=== PATIENT | female | born 1995 | race Caucasian/White ===

== ENCOUNTER 2018-08-28 10:45 | Inpatient (IN) | payer BC ==
[2018-08-28 11:37] LABS: #Basophils 0.1 thou/uL (0.0-0.2); #Eosinphils 0.2 thou/uL (0.0-0.7); #Lymphocytes 2.1 thou/uL (1.20-3.40); #Monocytes 0.9 thou/uL (0.11-0.59); #Neutrophils 12.6 thou/uL (1.40-6.50); %Basophils 0.8 % (0.0-1.0); %Eosinophils 1.3 % (0.0-10.0); %Lymphocytes 13.4 % (21.0-51.0); %Monocytes 5.8 % (0.0-10.0); %Neutrophils 78.7 % (42.0-75.0); Hemoglobin 13.3 g/dL (12.0-16.0); Mean Corpuscular HGB CONC 32.5 g/dL (32.0-36.0); Mean Corpuscular Hemoglobin 29.9 pg (27.0-31.0); Mean Corpuscular Volume 92.2 fL (78.0-98.0); Mean Platelet Volume 6.4 fL (7.4-10.4); Platelet Count 347 thou/uL (130-400); RBC Distribution Width 11.2 % (11.5-14.5); Red Blood Cell (RBC) Count 4.44 mill/uL (4.20-5.40)
[2018-08-28] MEDS ORDERED: Lidocaine 1% w/Epinephrine 1:100K 20 ML VIAL ONE (11:51)
[2018-08-28] MEDS ORDERED: Morphine 4 MG/ML VIAL ONE ×2 (12:04→12:55)
[2018-08-28 12:10] LABS: ALT (SGPT) 9 U/L (8-55); AST (SGOT) 10 U/L (5-34); Albumin 3.8 g/dL (3.5-5.0); Alkaline Phosphatase 85 U/L (40-150); Anion Gap 8 mmol/L (10-20); BUN (Urea Nitrogen) 6 mg/dL (7.0-18.7); Bilirubin, Total 0.3 mg/dL (0.2-1.2); Calc. Creatinine Clearance 0 mL/min (70-130); Calcium 9.8 mg/dL (7.8-10.44); Carbon Dioxide 31 mmol/L (22-29); Chloride 100 mmol/L (98-107); Estimated GFR-MDRD Greater than 90; Globulin 4.1 g/dL (2.4-3.5); Glucose 93 mg/dL (70-105); Potassium 4.4 mmol/L (3.5-5.1); Protein, Total 7.9 g/dL (6.0-8.3); Sodium 135 mmol/L (136-145)
[2018-08-28] MEDS ORDERED: Succinylcholine Chloride 20 MG/ML 10 ml SYRINGE FS ONE (14:37)
[2018-08-28] MEDS ORDERED: Acetaminophen 325 MG TAB PO PRN (14:54)
[2018-08-28] MEDS ORDERED: HYDROcodone/Acetaminophen 5/325 mg Tablet PO PRN (14:56)
[2018-08-28] MEDS ORDERED: HYDROcodone/Acetaminophen 5/325 mg Tablet ONE (15:14)
--- NOTE | 2018-08-28 16:19 | HP ---
CHIEF COMPLAINT: Axillary abscess. HISTORY OF PRESENT ILLNESS: This patient is a 23-year-old female with a history of scleroderma morphea, who is on no immunosuppressant medications. The patient developed a couple of small pimple like lesions in the right anterior axilla. She used a needle to open them, but immediately started getting some inflammation anterior in the upper outer pectoralis breast area extending from the axilla. She saw her PCP and was given oral Keflex and clindamycin with a Rocephin shot and failed to have significant improvement, so she came back, had another Rocephin shot and was continued on Keflex, where she continued to progress, returned there again today and was referred to the emergency department. She has had fever intermittently for the last 3 days. Her pain ranges from 4/10 to 10/10 and is somewhat positional. The pain tends to radiate toward the scapula and lying still seems to help. She has been using some Tylenol No. 3 to relieve the pain. REVIEW OF SYSTEMS: Fever as noted above. All of the systems reviewed, all pertinent positives and negatives noted in the history of present illness. PAST MEDICAL HISTORY: Notable for the scleroderma morphea and severe depression. PAST SURGICAL HISTORY: None. FAMILY HISTORY: Mother had breast cancer at 40. Grandmother had breast cancer. Father of liver cirrhosis and paternal grandmother had lupus. 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 She smokes about half a pack per day for the last 7 years. Minimal alcohol consumption. No drugs. She is full code and her mother would be her surrogate decision maker. ALLERGIES: NONE. CURRENT MEDICATIONS: 1. Adderall 60 mg daily p.r.n. 2. control. 3. Pristiq 50 mg daily. 4. Ibuprofen daily. 5. P.r.n. laxatives. PHYSICAL EXAMINATION: VITAL SIGNS: BP 116/70, pulse 76, respirations 20, temperature is 98.3, O2 sats 98% on room air. GENERAL APPEARANCE: Age-appropriate female, in no distress. She is awake, alert, oriented, pleasant, and cooperative. HEENT: PERRL. No OP lesions. NECK: Supple and symmetric with no lymphadenopathy, JVD, or carotid bruits. HEART: Regular rate and rhythm without murmurs, gallops, or rubs. LUNGS: Clear to auscultation bilaterally with good chest wall expansion and air exchange. ABDOMEN: Soft, nontender, and nondistended. Positive bowel sounds. No masses. No organomegaly. EXTREMITIES: No cyanosis, clubbing, or edema. SKIN: Warm and dry. She has some vascular dermatitis type changes of linear type fashion of the right ankle. Also has some on her back area. She has significant amount of erythema, most intensely about 4 x 5 cm in the right anterior axilla and upper outer pectoralis area. This is exquisitely tender to palpation. There is no drainage noted or communication with the skin. NEURO: The patient appears to be fully intact with no focal deficits. PSYCH: The patient has normal affect and behavior. LABORATORY DATA: White count 16.0, hemoglobin 13.3, platelets 347. No bands. Sodium 135, potassium 4.4, chloride 100, CO2 31, BUN 6, creatinine 0.72. LFTs normal. EMERGENCY DEPARTMENT COURSE: The patient was administered morphine and vancomycin and was subsequently aspirated from this abscess area and approximately 30 mL of purulent material was aspirated. This was sent for culture. The patient reports that she feels some better after the aspiration, but continues to have significant pain. IMPRESSION AND PLAN: 1. Right axillary abscess status post aspiration of 30 mL of purulent fluid. The patient has received vancomycin. We will continue with observation care, IV vancomycin, p.o. pain medications. We will follow up on the culture and reassess the outlined area of the wound in the morning. Pending her progression, may need to have a surgical evaluation if there appears to be reaccumulation of abscess forming. Otherwise, if the patient is showing some significant improvement, we will hopefully get some help from cultures to guide therapy going forward. The patient reports a history of staph infection, but indicates it was not MRSA. 2. History of depression. We will continue with the Pristiq, which we will convert to venlafaxine per our formulary. 3. Scleroderma morphea, chronic and stable. Job ID: [id number]
[2018-08-28 17:09] VITALS: BMI 27.4
[2018-08-28] MEDS: HYDROcodone/Acetaminophen 5/325 mg Tablet PO PRN ×2 (17:26→21:43)
[2018-08-28] MEDS: Vancomycin HCl 1.5 GM in Sodium Chloride 0.9% 250 ML 300 ML IVPB SCH (20:24)
[2018-08-28] MEDS ORDERED: Vancomycin HCl 1 GM in Premix Bag 1 BAG IVPB SCH (21:00)
[2018-08-29 04:21] LABS: #Basophils 0.1 thou/uL (0.0-0.2); #Eosinphils 0.3 thou/uL (0.0-0.7); #Lymphocytes 2.8 thou/uL (1.20-3.40); #Monocytes 0.7 thou/uL (0.11-0.59); #Neutrophils 6.4 thou/uL (1.40-6.50); %Basophils 0.8 % (0.0-1.0); %Eosinophils 2.6 % (0.0-10.0); %Lymphocytes 27.3 % (21.0-51.0); %Monocytes 7.1 % (0.0-10.0); %Neutrophils 62.3 % (42.0-75.0); Hemoglobin 12.2 g/dL (12.0-16.0); Mean Corpuscular Hemoglobin 30.7 pg (27.0-31.0); Mean Corpuscular Volume 90.3 fL (78.0-98.0); Mean Platelet Volume 6.4 fL (7.4-10.4); Platelet Count 322 thou/uL (130-400); RBC Distribution Width 11.1 % (11.5-14.5); Red Blood Cell (RBC) Count 3.98 mill/uL (4.20-5.40); White Blood Cell (WBC) Count 10.2 thou/uL (4.8-10.8)
[2018-08-29] MEDS: Morphine 4 MG/ML VIAL SLOW IVP PRN ×4 (04:21→20:42)
[2018-08-29] MEDS: Vancomycin HCl 1.5 GM in Sodium Chloride 0.9% 250 ML 300 ML IVPB SCH (04:21)
[2018-08-29] MEDS: Venlafaxine HCl XR 75 MG CAP PO SCH (07:52)
[2018-08-29] MEDS: HYDROcodone/Acetaminophen 5/325 mg Tablet PO PRN ×4 (07:52→23:39)
--- NOTE | 2018-08-29 10:11 | PRG ---
DATE OF SERVICE: 08/29/2018 SUBJECTIVE: The patient reports that she does feel better than she did yesterday. The pain still comes and goes. She does feel like the pocket has reaccumulated fluid after being aspirated yesterday. OBJECTIVE: VITAL SIGNS: She is afebrile. T-max 97.9, pulse 73, respirations 18, O2 saturation 99% on room air, BP 118/60. GENERAL APPEARANCE: Age-appropriate female, in no distress. HEART: Regular rate and rhythm. No murmurs. LUNGS: Clear to auscultation bilaterally. ABDOMEN: Soft, nontender, and nondistended. SKIN: Reveals persistent pocket of fluid in the right upper outer pectoralis/axillary area which is exquisitely tender. There is still overlying erythema of the skin with a small halo beyond the more intense area. LABORATORY DATA: White count 10.2, hemoglobin 12.2. Culture so far is growing Staph aureus, the susceptibilities are pending. IMPRESSION AND PLAN: 1. Right axillary area abscess status post aspiration of 30 mL of purulent fluid in the emergency department. She remains on vancomycin. However, with the reaccumulation of the pocket, we will ask Surgery to see her as this may need to be opened. We will follow cultures and susceptibilities. 2. History of depression. Continue with the venlafaxine. 3. History of scleroderma morphea, stable. Job ID: [id number]
[2018-08-29 11:17] LABS: Vancomycin, Trough 21.2 ug/mL
[2018-08-29] MEDS: Vancomycin HCl 1.25 GM in Sodium Chloride 0.9% 250 ML 250 ML IVPB SCH ×2 (12:16→19:31)
[2018-08-29] MEDS: Nicotine 14 MG PATCH TOP SCH (17:41)
[2018-08-30] MEDS: Morphine 4 MG/ML VIAL SLOW IVP PRN ×2 (01:15→07:20)
[2018-08-30] MEDS: Vancomycin HCl 1.25 GM in Sodium Chloride 0.9% 250 ML 250 ML IVPB SCH ×3 (03:27→20:00)
[2018-08-30] MEDS: HYDROcodone/Acetaminophen 5/325 mg Tablet PO PRN ×4 (03:34→22:20)
[2018-08-30] MEDS ORDERED: Bisacodyl 10 MG SUPP PR SCH (06:15)
[2018-08-30] MEDS ORDERED: Midazolam HCl 2 mg/2 ml Vial ONE (07:07)
[2018-08-30] MEDS ORDERED: Fentanyl 100 MCG/2 ML VIAL ONE ×2 (07:07→09:05)
[2018-08-30] MEDS ORDERED: Bupivacaine/Epinephrine 0.25% 30 ML VIAL ONE (07:44)
[2018-08-30] MEDS ORDERED: Promethazine HCl 25 MG/ML VIAL IM PRN (08:52)
[2018-08-30] MEDS ORDERED: Promethazine HCl 25 MG/ML VIAL SLOW IVP PRN (08:52)
[2018-08-30] MEDS ORDERED: Ondansetron HCl/PF 4 MG/2 ML Vial IVP PRN (08:52)
[2018-08-30] MEDS: Venlafaxine HCl XR 75 MG CAP PO SCH (10:17)
[2018-08-30 11:49] LABS: Vancomycin, Trough 17.9 ug/mL
--- NOTE | 2018-08-30 14:20 | PDOC.PN ---
- Subjective Encounter Start Date: 08/30/18 Encounter Start Time: 09:00 Patient seen and examined for MRSA abscess. Pain +. No fever. No new complaints. No overnight events - Objective Resuscitation Status - Order Detail: 08/28/18 14:56 Resuscitation Status Routine Resuscitation Status: FULL: Full Resuscitation Discussed with: Patient MUKUND Reviewed: Yes Vital Signs & Weight: Vital Signs (12 hours) Temp Pulse Resp BP Pulse Ox 08/30/18 10:00 97.7 F 71 18 137/69 98 08/30/18 09:30 97.7 F 75 20 100 08/30/18 07:30 100 08/30/18 07:21 97.6 F 81 16 129/77 100 08/30/18 03:57 97.7 F 59 L 12 112/69 98 Weight Weight 169 lb 15.622 oz I&O: 08/29/18 08/30/18 08/31/18 06:59 06:59 06:59 Intake Total 3020 2787.0 Balance 3020 2787.0 Result Diagrams: 08/29/18 04:10 08/28/18 11:31 Phys Exam - Physical Examination Constitutional: NAD Respiratory: no wheezing, no rhonchi Cardiovascular: RRR, no rub Gastrointestinal: soft, non-tender, positive bowel sounds Musculoskeletal: no edema Rt axillary swelling Neurological: moves all 4 limbs Dx/Plan - Plan DVT proph w/SCDs 1. Sepsis due to MRSA Axillary abscess 2. Depression - mild - stable 3. Scleroderma Morphea 4. Hyponatremia PLAN: Cont IV Vancomycin Pain control Monitor Vancomycin level I&D today Review of Systems - Review of Systems Respiratory: negative: Cough, Dry, Shortness of Breath, Hemoptysis, SOB with Excertion, Pleuritic Pain, Sputum, Wheezing Cardiovascular: negative: chest pain, palpitations, orthopnea, paroxysmal nocturnal dyspnea, edema, light headedness, other - Medications/Allergies Allergies/Adverse Reactions: Allergies Allergy/AdvReac Type Severity Reaction Status Date / Time No Known Allergies Allergy Unverified 08/28/18 15:13 Medications: Current Medications Acetaminophen (Tylenol) 650 mg PO Q4H PRN PRN Reason: Headache/Fever/Mild Pain (1-3) Hydrocodone Bitart/Acetaminophen (Webb 5/325) 1 tab PO Q4H PRN PRN Reason: Mild-Moderate Pain (1-5) Hydrocodone Bitart/Acetaminophen (Webb 5/325) 2 tab PO Q4H PRN PRN Reason: Moderate to Severe Pain (6-10) Last Admin: 08/30/18 10:17 Dose: 2 tab Vancomycin HCl 1.25 gm/ Sodium (Chloride) 250 mls @ 166.667 mls/hr IVPB 0400, 1200,2000 [facility] Last Admin: 08/30/18 13:20 Dose: 250 mls Miscellaneous Medication (Pharmacy To Dose) 1 each IVPB PRN PRN PRN Reason: . Morphine Sulfate (Morphine) 2 mg SLOW IVP Q4H PRN PRN Reason: Severe Pain (7-10) Last Admin: 08/30/18 07:20 Dose: 2 mg Nicotine (Nicoderm Patch) 14 mg TOP Q24HR [facility] Last Admin: 08/29/18 17:41 Dose: Not Given Sodium Chloride (Flush - Normal Saline) 10 ml IVF Q12HR [facility] Sodium Chloride (Flush - Normal Saline) 10 ml IVF PRN PRN PRN Reason: Saline Flush Last Admin: 08/30/18 13:20 Dose: 10 ml Venlafaxine HCl (Effexor Xr) 75 mg PO DAILY [facility] Last Admin: 08/30/18 10:17 Dose: 75 mg
[2018-08-30] MEDS ORDERED: PROPOFOL 200 MG/20 ML VIAL ONE (14:48)
[2018-08-30] MEDS ORDERED: Lidocaine 1% PF 5 ML VIAL ONE (14:48)
[2018-08-30] MEDS ORDERED: Ondansetron PF 4 MG/2 ML Vial ONE (14:48)
[2018-08-30] MEDS ORDERED: Dexamethasone 20 MG/5 ML VIAL ONE (14:48)
--- NOTE | 2018-08-30 15:33 | OP ---
DATE OF PROCEDURE: 08/30/2018 PROCEDURE PERFORMED: Incision and drainage of right axillary abscess. DIAGNOSIS: Right axillary abscess. POSTOPERATIVE DIAGNOSIS: Right axillary abscess. ANESTHESIA: General. ESTIMATED BLOOD LOSS: Minimal. COMPLICATIONS: None. SPECIMEN: Cultures taken for culture and sensitivity. DESCRIPTION OF PROCEDURE: The patient was taken to the operating room and placed in supine position after the right axilla was prepped and draped in a sterile fashion. Local anesthetic was infiltrated over the abscess. Ellipsed skin takeout over the abscess. Cultures were taken and the wound was irrigated. All loculations broke up local up and packed with iodoform gauze. Sterile dressings were placed. The patient was sent to Recovery in stable condition. All instrument counts, needle counts, and lap counts were correct. Job ID: [id number]
[2018-08-30] MEDS: Nicotine 14 MG PATCH TOP SCH (16:26)
[2018-08-30] MEDS ORDERED: Polyethylene Glycol 3350 17 GM Packet PO PRN (16:58)
[2018-08-30] MEDS ORDERED: Mag-Al 1200 mg/1200 mg/30 ML UDCUP PO PRN (16:58)
[2018-08-30] MEDS: Senokot S 8.6-50 MG TAB PO SCH (20:00)
[2018-08-31] MEDS: HYDROcodone/Acetaminophen 5/325 mg Tablet PO PRN ×2 (04:37→08:59)
[2018-08-31] MEDS: Vancomycin HCl 1.25 GM in Sodium Chloride 0.9% 250 ML 250 ML IVPB SCH ×2 (04:37→11:58)
[2018-08-31 07:09] VITALS: BP 141/106; TEMP 97.8
[2018-08-31] MEDS: Morphine 4 MG/ML VIAL SLOW IVP PRN ×2 (07:15→11:57)
--- NOTE | 2018-08-31 08:51 | CON ---
DATE OF CONSULTATION: 08/29/2018 HISTORY OF PRESENT ILLNESS: Ms. Rubio is a 23-year-old female, who presents with history of swelling and redness in the right axilla for a few days, associated with fever and severe pain, admitted to the hospital. She had aspiration in the ER, which revealed MRSA. She is on vancomycin. The swelling has reaccumulated and she has pain. I have been consulted for definitive incision and drainage. PAST MEDICAL HISTORY: Includes scleroderma, morphea, and depression. PAST SURGICAL HISTORY: None. MEDICATIONS: Medicines taken daily; 1. Adderall. 2. control. 3. Pristiq. 4. Ibuprofen. ALLERGIES: NO KNOWN DRUG ALLERGIES. SOCIAL HISTORY: Half pack-a-day smoker. Minimal alcohol. No drugs. REVIEW OF SYSTEMS: Ten system review of systems otherwise negative unless described above. PHYSICAL EXAMINATION: VITAL SIGNS: Blood pressure 131/73, pulse 87, and respirations 16. She is afebrile. HEENT: Sclerae anicteric. Oropharynx clear. NECK: No lymphadenopathy. CHEST: Clear. HEART: Regular rate and rhythm. ABDOMEN: Soft and nontender. Examination of the right axilla revealed a swollen fluctuant mass in the in the superior anterior right axilla. SKIN: No bulla or skin crepitus. BREASTS: No obvious breast mass. ASSESSMENT: Right axillary abscess. PLAN: Incision and drainage in the OR in the operating room tomorrow. Risks, benefits, and alternatives were discussed she gives consent we will do this tomorrow. Job ID: [id number]
[2018-08-31] MEDS: Venlafaxine HCl XR 75 MG CAP PO SCH (08:53)
[2018-08-31] MEDS: Senokot S 8.6-50 MG TAB PO SCH (08:53)
--- NOTE | 2018-08-31 18:33 | DIS ---
DATE OF ADMISSION: 08/30/2018 DATE OF DISCHARGE: 08/31/2018 DISCHARGE DISPOSITION: Home. FOLLOWUP: 1. Follow up with Dr. Cassidy in 1 to 2 days as scheduled. 2. Follow up with Dr. Vu in 1 week. ALLERGIES: NO KNOWN DRUG ALLERGIES. THE PATIENT WAS SEEN ON THE DAY OF DISCHARGE. DENIES ANY NEW COMPLAINTS. NO FEVER OR CHILLS REPORTED. SIGNIFICANT LABORATORY DATA: WBC on admission 16 and at discharge 10.2. Sodium 135, potassium 4.4 with BUN 6, and creatinine 0.72. LFTs were normal. Lactic acid 0.8. Blood cultures, negative. Culture from the axilla showed methicillin-resistant staphylococcus aureus sensitive to Bactrim. Axillary abscess culture done after drainage is pending at this time. Primary care physician advised to follow. INPATIENT [employer]IN [employer] SEWER: General Surgery, Dr. Cassidy. INPATIENT PROCEDURES: On 30 August 2018, the patient underwent incision and drainage of the right axillary abscess. BRIEF HOSPITAL COURSE: The patient is a 23-year-old female, who presented to the emergency room with axillary abscess. She failed outpatient antibiotic treatment. Please refer to the history and physical for further details. The patient was admitted to the hospital with a diagnosis of right axillary abscess. She was monitored on the medical floor. She underwent incision and drainage in OR yesterday. She also had approximately 30 mL of purulent material aspirated in the emergency room. She was placed on vancomycin. The culture showed MRSA sensitive to Bactrim. WBC counts improved with antibiotics. She has been cleared by General Surgery for discharge. FINAL DIAGNOSES: 1. Right axillary abscess secondary to methicillin-resistant Staphylococcus aureus. 2. Sepsis secondary to #1. 3. Depression, mild, stable. 4. Scleroderma morphea. 5. Hyponatremia. Repeat labs as outpatient is recommended. Primary care physician advised to follow. PLAN: Plan of care was discussed with the patient and the family in detail. They stated understanding. Job ID: [id number]
== END 2018-08-31 14:48 | disposition home or self-care (01) | DRG 854 ==
LOC: ERS 10:45 → ONC 14:04 → OBSVTOIN 08-30 07:25
PROVIDERS: ADMIT Internal Medicine; ATTEND Internal Medicine
PROC: 0J9D3ZZ Drainage of Right Upper Arm Subcutaneous Tissue and Fascia, Percutaneous Approach (ICD-10-PCS; principal; 2018-08-28)
PROC: 0J9D0ZZ Drainage of Right Upper Arm Subcutaneous Tissue and Fascia, Open Approach (ICD-10-PCS; 2018-08-30)
DX: A41.02 Sepsis due to Methicillin resistant Staphylococcus aureus (principal); L02.411 Cutaneous abscess of right axilla; E87.1 Hypo-osmolality and hyponatremia; M34.89 Other systemic sclerosis; F32.9 Major depressive disorder, single episode, unspecified; F17.210 Nicotine dependence, cigarettes, uncomplicated
CPT/HCPCS: 10061; 36415; 80053; 80202; 83605; 85025; 87040; 87070; 87077; 87186; 87205; 96365; 96375; J1100; J2001; J2250; J2270; J2405; J2704; J3010; J3370; J7050